=== PATIENT | female | born 2000 | race Caucasian/White ===

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

== ENCOUNTER 2018-04-29 08:02 | Day surgery (SDC) | payer OTHER ==
[2018-04-29] MEDS: LR 1,000 ML IV (08:40)
[2018-04-29] MEDS ORDERED: MIDAZOLAM INJ 2 MG/2 ML VIAL (J2250) As Ordered (08:52)
[2018-04-29] MEDS ORDERED: fentaNYL 100 MCG/2 ML INJECTION (J3010) As Ordered ×2 (08:52→10:20)
[2018-04-29 08:55] LABS: CONTROL LINE UCG INT CTR LINE PRESENT; URINE PREG TEST NEGATIVE (NEGATIVE)
[2018-04-29] MEDS: BUPIVACAINE/EPIN 0.5% 30 ML VIAL As Ordered (09:39)
[2018-04-29] MEDS: LIDOCAINE W/EPINEPHRINE 1% 20ML VIAL As Ordered (09:39)
[2018-04-29] MEDS ORDERED: PERCOCET 5MG/325MG TAB As Ordered (10:20)
[2018-04-29] MEDS: PERCOCET 5MG/325MG TAB PO (10:25)
[2018-04-29] MEDS: fentaNYL 100 MCG/2 ML INJECTION (J3010) IV ×4 (10:25→10:40)
[2018-04-29] MEDS ORDERED: ONDANSETRON 4MG/2ML VIAL (J2405) IV (10:30)
[2018-04-29] MEDS ORDERED: ACETAMINOPH W/CODEINE #3 TAB UD PO (10:30)
[2018-04-29] MEDS ORDERED: HYDROMORPHONE HCL 0.5 MG/ 0.5 ML SYRINGE (J1170 PER 1) IV (10:30)
[2018-04-29] MEDS ORDERED: LR 1,000 ML IV ×2 (10:30)
== END 2018-04-29 11:41 | disposition home or self-care (01) ==
LOC: M SDC 08:02
DX: J35.01 Chronic tonsillitis (principal)
CPT/HCPCS: 42826

== ENCOUNTER → 2020-02-21 | Outpatient (CLI) | payer OTHER ==
[~2020-02-21] MED LIST: JULE1TAB PO
[2020-02-21 14:51] LABS: IONIZED CALCIUM 4.8 MG/DL (4.5-5.3)
[2020-02-21 15:18] LABS: HEMOGLOBIN A1c 5.1 %
[2020-02-21 15:28] LABS: THYROID STIMULATING HORMONE 1.96 uIU/ML (0.358-3.740)
[2020-02-22 10:37] LABS: THYROGLOBULIN ANTIBODY 34.9 U/ML (<60.0); THYROID PEROXIDASE ANTIBODY 828.2 U/ML (<60.0)
[2020-02-29 13:06] LABS: ADRENAL ANTIBODIES Negative (Neg=<1:10); ANTI MULLERIAN HORMONE <0.015 ng/mL (.)
== END ==
LOC: M LAB 13:57
PROVIDERS: ATTEND Obstetrics & Gynecology Reproductive Endocrinology
DX: E28.39 Other primary ovarian failure (principal)

== ENCOUNTER → 2024-01-02 | Outpatient (REF) | payer OTHER ==
[2024-01-02 17:37] LABS: CREATININE,RANDOM URINE 159.4 MG/DL
== END ==
LOC: M LAB REF 16:54
PROVIDERS: ATTEND Internal Medicine Nephrology
DX: R80.9 Proteinuria, unspecified (principal)

== ENCOUNTER 2024-12-04 06:22 | Day surgery (SDC) | payer OTHER ==
[~2024-12-04] VITALS: Ht 165.1 cm; Wt 59.0 kg
[~2024-12-04 06:22] MED LIST changes: +GLYCOPYRROLATE INJ 0.2 MG/ML 2 ML VIAL As Ordered ONE; +KETOROLAC 60MG 2ML VIAL As Ordered ONE; +LIDOCAINE 2% 100MG/5ML SDV (FOR ANES.) As Ordered ONE; +METOCLOPRAMIDE INJ 10MG/2ML VIAL As Ordered ONE; +ONDANSETRON 4MG 2ML VIAL As Ordered ONE; +propofoL 200 MG/20 ML VIAL As Ordered ONE
[2024-12-04] MEDS ORDERED: fentaNYL 100 MCG/2 ML INJECTION As Ordered ONE (06:26)
[2024-12-04] MEDS ORDERED: MIDAZOLAM INJ 2MG/2ML VIAL As Ordered ONE (06:27)
[2024-12-04] MEDS: ACETAMINOPHEN 500 MG TAB PO ONE (06:35)
[2024-12-04] MEDS: SCOPOLAMINE 1MG TRANSDERMAL PATCH TOP ONE (06:35)
[2024-12-04] MEDS ORDERED: PERC5TAB12 PO (07:00)
[2024-12-04] MEDS ORDERED: LR 1,000 ML IV SCH ×2 (07:10→08:45)
[2024-12-04 07:15] LABS: HEMOGLOBIN 13.1 g/dl (12.0-15.5); MEAN CORPUSCULAR HGB CONC 32.8 g/dl (32.0-36.5); MEAN CORPUSCULAR VOLUME 94.6 fl (80.0-96.0); PLATELET COUNT, AUTOMATED 282 10^3/uL (150-450); RED BLOOD COUNT 4.23 10^6/uL (4.00-5.40); WHITE BLOOD COUNT 12.9 10^3/uL (4.0-10.0)
[2024-12-04] MEDS ORDERED: ePHEDrine SULFATE 25 MG/5 ML(5MG/ML) SYRINGE As Ordered ONE (07:43)
[2024-12-04] MEDS: ceFAZolin SOD 2 GM IV ONCE IV ONE (07:45)
[2024-12-04] MEDS ORDERED: PHENYLephrine 500MCG 5ML (100MCG/ML) SYRINGE As Ordered ONE (07:53)
[2024-12-04] MEDS: LIDOCAINE 1% MDV 20ML VIAL As Ordered ONE (08:32)
[2024-12-04] MEDS ORDERED: oxyCODONE 5MG TAB PO PRN (08:45)
[2024-12-04] MEDS ORDERED: fentaNYL 100 MCG/2 ML INJECTION IV PRN (08:45)
[2024-12-04] MEDS ORDERED: HYDROMORPHONE HCL 0.5 MG/ 0.5 ML SYRINGE IV PRN (08:45)
[2024-12-04] MEDS ORDERED: ONDANSETRON 4MG 2ML VIAL IV PRN ×2 (08:45→08:55)
[2024-12-04] MEDS: BACTRIM 160MG/800MG DS TAB PO ONE (09:07)
[2024-12-04 09:29] VITALS: BP 111/68; TEMP 98.7; O2SAT 98
== END 2024-12-04 09:53 | disposition home or self-care (01) ==
LOC: M SDC 06:22
PROVIDERS: ATTEND Student in an Organized Health Care Education/Training Program
DX: N75.0 Cyst of Bartholin's gland (principal); G43.909 Migraine, unspecified, not intractable, without status migrainosus; Z79.3 Long term (current) use of hormonal contraceptives; Z87.891 Personal history of nicotine dependence
CPT/HCPCS: 36415; 56440; 81025; 85027; 86850; 86900; 86901; J0690; J1100; J1596; J1885; J2250; J2371; J2405; J2765; J3010

== ENCOUNTER 2024-12-14 09:08 | Emergency (ER) | payer OTHER ==
[~2024-12-14] VITALS: Ht 167.6 cm; Wt 60.6 kg
[~2024-12-14 09:08] MED LIST changes: -GLYCOPYRROLATE INJ 0.2 MG/ML 2 ML VIAL As Ordered ONE; -KETOROLAC 60MG 2ML VIAL As Ordered ONE; -LIDOCAINE 2% 100MG/5ML SDV (FOR ANES.) As Ordered ONE; -METOCLOPRAMIDE INJ 10MG/2ML VIAL As Ordered ONE; -ONDANSETRON 4MG 2ML VIAL As Ordered ONE; +PERC5TAB12 PO; -propofoL 200 MG/20 ML VIAL As Ordered ONE
[2024-12-14 12:40] LABS: BASO % 0.3 % (0.0-1.0); EOS # 0.2 10^3/uL (0.0-0.5); EOS % 2.1 % (0.0-3.0); HEMOGLOBIN 13.5 g/dl (12.0-15.5); LYMPH # 2.8 10^3/uL (1.5-5.0); LYMPH % 36.5 % (24.0-44.0); MEAN CORPUSCULAR HEMOGLOBIN 30.4 pg (27.0-33.0); MEAN CORPUSCULAR HGB CONC 32.1 g/dl (32.0-36.5); MEAN CORPUSCULAR VOLUME 94.6 fl (80.0-96.0); MONO # 0.4 10^3/uL (0.0-0.8); MONO % 4.9 % (2.0-8.0); NEUTROPHILS # 4.2 10^3/uL (1.5-8.5); NEUTROPHILS % 55.9 % (36.0-66.0); PLATELET COUNT, AUTOMATED 247 10^3/uL (150-450); RED BLOOD COUNT 4.44 10^6/uL (4.00-5.40); WHITE BLOOD COUNT 7.6 10^3/uL (4.0-10.0)
[2024-12-14 12:56] VITALS: BP 105/58; TEMP 97.8; O2SAT 100
[2024-12-14 13:02] LABS: KETONE, URINE AUTO RFX NEGATIVE (NEGATIVE); MUCUS, URINE RFX SMALL (NEGATIVE); NITRITE, URINE AUTO RFX NEGATIVE (NEGATIVE); RBC, URINE AUTO RFX 1 /HPF (0-3); SQUAM EPITHELIAL CELL UR AURFX 9 /HPF (0-6)
[2024-12-14 13:04] LABS: LEUKOCYTE ESTERASE UR AUTO RFX TRACE (NEGATIVE); WBC, URINE AUTO RFX 25 /HPF (0-3)
[2024-12-14 13:07] LABS: BLOOD UREA NITROGEN 10 MG/DL (9-23); CARBON DIOXIDE LEVEL 27 MMOL/L (20-31); CHLORIDE LEVEL 104 MMOL/L (98-107); CREATININE FOR GFR 0.67 MG/DL (0.55-1.30); GLOMERULAR FILTRATION RATE > 60.0 (>60); GLUCOSE, FASTING 76 MG/DL (60-100); SODIUM LEVEL 139 MMOL/L (136-145)
[2024-12-14] MEDS ORDERED: CETI-24 PO (13:14)
[2024-12-14 13:20] LABS: HCG, SERUM QUALITATIVE NEGATIVE (NEGATIVE)
== END 2024-12-14 13:29 | disposition home or self-care (01) ==
LOC: M ED 09:08
DX: R21 Rash and other nonspecific skin eruption (principal); R50.82 Postprocedural fever; Z79.899 Other long term (current) drug therapy